=== PATIENT | female | born 1950 | race Caucasian/White ===

== ENCOUNTER 2021-08-15 00:58 | Inpatient (IN) | payer MEDICARE ==
[2021-08-15] VITALS (10 sets, daily range): BP systolic 100–121; BP diastolic 65–76
[~2021-08-15] VITALS: Ht 162.6 cm; Wt 101.2 kg
[2021-08-15] MEDS: ALBUTEROL/IPRATROPIUM 3 ML NEB NEB SCH ×4 (01:25→20:45)
[2021-08-15 01:27] LABS: BASOPHILS # (AUTO) 0.1 (0.0-0.1); BASOPHILS % 0.8 % (0.0-1.0); EOSINOPHILS # (AUTO) 0.2 (0.0-0.4); EOSINOPHILS % 2.6 % (0.0-6.0); HEMATOCRIT 34.2 % (34.2-44.1); HEMOGLOBIN 10.6 g/dL (12.0-16.0); LYMPHOCYTES # (AUTO) 1.8 (1.0-3.2); LYMPHOCYTES % 23.7 % (18.0-39.1); MEAN CORPUSCULAR VOLUME 93.4 fL (81-99); MONOCYTES # (AUTO) 0.9 (0.2-0.8); MONOCYTES % 11.8 % (4.4-11.3); NEUTROPHILS # (AUTO) 4.5 (2.1-6.9); NEUTROPHILS % 59.6 % (38.7-80.0); PLATELET COUNT 381 x10e3/uL (140-360); RED BLOOD COUNT 3.66 x10e6/uL (3.6-5.1); RED CELL DISTRIBUTION WIDTH 16.4 % (11.7-14.4)
[2021-08-15 01:46] LABS: ALBUMIN/GLOBULIN RATIO 0.9 (0.8-2.0); ANION GAP 13.8 mmol/L (8-16); CALCIUM 9.2 mg/dL (8.4-10.2); CREATININE, SERUM 0.74 mg/dL (0.57-1.11); POTASSIUM 3.8 mmol/L (3.5-5.1)
[2021-08-15 01:50] LABS: B-TYPE NATRIURETIC PEPTIDE2 13.7 pg/mL (0-100)
[2021-08-15 01:52] LABS: CREATINE KINASE MB 0.9 ng/mL (0-5.0)
[2021-08-15] MEDS ORDERED: IOPAMIDOL 370 MG/ML 200 ML INFUS..BTL INJ ONE (02:11)
[2021-08-15] MEDS ORDERED: SODIUM CHLORIDE 0.9% 50ML 50 ML ONE (02:11)
[2021-08-15] MEDS ORDERED: SODIUM CHLORIDE 0.9% 1000ML 1,000 ML IV SCH (03:45)
[2021-08-15] MEDS ORDERED: ACETAMIN-CODE12.5 ML (05:48)
[2021-08-15] MEDS ORDERED: PREDNISONE10 MG PO (05:48)
[2021-08-15] MEDS ORDERED: SYMBICORT 16010.2 GM INH ×2 (05:48→13:24)
[2021-08-15] MEDS ORDERED: LISINOPRIL10 MG PO (05:48)
[2021-08-15] MEDS ORDERED: ROPINIROLE HC0.25 MG PO ×2 (05:48→13:24)
[2021-08-15] MEDS ORDERED: ALLOPURINOL100 MG PO (05:48)
[2021-08-15] MEDS ORDERED: METFORMIN HCL500 MG PO ×2 (05:48→13:24)
[2021-08-15] MEDS ORDERED: ONDANSETRON4 MG/2 ML (05:48)
[2021-08-15] MEDS ORDERED: BENZONATATE100 MG PO (05:48)
[2021-08-15] MEDS ORDERED: CLOPIDOGREL75 MG PO (05:48)
[2021-08-15] MEDS ORDERED: AMBIEN5 MG PO (05:48)
[2021-08-15] MEDS ORDERED: TOPROL XL25 MG PO (05:48)
[2021-08-15] MEDS ORDERED: ASPIRIN325 MG PO (05:48)
[2021-08-15] MEDS ORDERED: ACETAMINOPHEN650 MG RC (05:48)
[2021-08-15] MEDS ORDERED: ENULOSE10 GM/15 M PO (05:48)
[2021-08-15] MEDS ORDERED: ALBUTEROL SULFAT2 MG PO (05:48)
[2021-08-15] MEDS ORDERED: ELIQUIS2.5 MG PO (05:48)
[2021-08-15] MEDS ORDERED: AMLODIPINE BESYL5 MG PO (05:48)
[2021-08-15] MEDS ORDERED: OXYBUTYNIN CHLOR5 M1 PO (05:48)
[2021-08-15] MEDS ORDERED: DOCUSATE SODIU100 MG PO (05:48)
[2021-08-15] MEDS ORDERED: CELEBREX200 MG PO (05:48)
[2021-08-15] MEDS ORDERED: LATANOPROST2.5 ML OP (05:48)
[2021-08-15] MEDS ORDERED: ONDANSETRON2 MG/1 ML IV (05:48)
[2021-08-15] MEDS ORDERED: CLONAZEPAM1 MG PO (05:48)
[2021-08-15] MEDS ORDERED: ECOTRIN325 MG PO (05:48)
[2021-08-15] MEDS ORDERED: LIPITOR20 MG PO (05:48)
[2021-08-15] MEDS ORDERED: ALBUTEROL/IPRATROPIUM 3 ML NEB ONE (07:14)
[2021-08-15 09:42] LABS: CREATINE KINASE MB 0.9 ng/mL (0-5.0)
[2021-08-15] MEDS ORDERED: CLONAZEPAM 1 MG TAB PO PRN (10:45)
[2021-08-15] MEDS ORDERED: FAMOTIDINE20 MG PO (13:24)
[2021-08-15] MEDS ORDERED: PROAIR DIGIHAL90 MCG (13:24)
[2021-08-15] MEDS: ALBUTEROL SULFATE 2 MG TAB PO SCH ×2 (14:48→21:13)
[2021-08-15] MEDS: BENZONATATE 100 MG CAP PO SCH ×2 (15:37→21:13)
[2021-08-15] MEDS: ROPINIROLE HCL 0.25 MG TAB PO SCH ×2 (15:37→21:13)
[2021-08-15 16:52] LABS: CREATINE KINASE MB 0.9 ng/mL (0-5.0)
[2021-08-15] MEDS: APIXAB 2.5 MG TABLET PO SCH (18:12)
[2021-08-15] MEDS: BUDESONIDE/FORMOTEROL 160/4.5MCG INHALER INH SCH (20:45)
[2021-08-15] MEDS ORDERED: LATANOPROST(OPTH) 2.5 ML BTL OP SCH (21:00)
[2021-08-15] MEDS ORDERED: ZOLPIDEM TARTRATE 5 MG TAB PO PRN (21:00)
[2021-08-15] MEDS ORDERED: ATORVASTATIN 40 MG TAB PO SCH (21:00)
[2021-08-15] MEDS: HYDROCODONE/APAP 5MG-325MG TAB PO PRN (22:37)
[2021-08-16] VITALS (7 sets, daily range): BP systolic 99–127; BP diastolic 55–77
[2021-08-16] MEDS: ALBUTEROL/IPRATROPIUM 3 ML NEB NEB SCH ×6 (03:00→15:31)
[2021-08-16] MEDS: HYDROCODONE/APAP 5MG-325MG TAB PO PRN (05:13)
[2021-08-16 05:56] LABS: BASOPHILS # (AUTO) 0.1 (0.0-0.1); BASOPHILS % 0.8 % (0.0-1.0); EOSINOPHILS # (AUTO) 0.1 (0.0-0.4); EOSINOPHILS % 1.8 % (0.0-6.0); HEMATOCRIT 30.9 % (34.2-44.1); HEMOGLOBIN 9.5 g/dL (12.0-16.0); LYMPHOCYTES # (AUTO) 1.5 (1.0-3.2); LYMPHOCYTES % 20.7 % (18.0-39.1); MEAN CORPUSCULAR HEMOGLOBIN 28.9 pg (28-32); MEAN CORPUSCULAR HGB CONC 30.7 g/dL (31-35); MEAN CORPUSCULAR VOLUME 93.9 fL (81-99); MONOCYTES # (AUTO) 0.9 (0.2-0.8); MONOCYTES % 12.2 % (4.4-11.3); NEUTROPHILS # (AUTO) 4.5 (2.1-6.9); PLATELET COUNT 334 x10e3/uL (140-360); RED BLOOD COUNT 3.29 x10e6/uL (3.6-5.1); RED CELL DISTRIBUTION WIDTH 16.4 % (11.7-14.4)
[2021-08-16 06:24] LABS: ALBUMIN 2.8 g/dL (3.5-5.0); ALBUMIN/GLOBULIN RATIO 0.9 (0.8-2.0); ANION GAP 10.5 mmol/L (8-16); CALCIUM 8.7 mg/dL (8.4-10.2); CREATININE, SERUM 0.66 mg/dL (0.57-1.11); POTASSIUM 3.5 mmol/L (3.5-5.1)
[2021-08-16] MEDS: BUDESONIDE/FORMOTEROL 160/4.5MCG INHALER INH SCH (08:10)
[2021-08-16] MEDS: APIXAB 2.5 MG TABLET PO SCH (08:12)
[2021-08-16] MEDS: ROPINIROLE HCL 0.25 MG TAB PO SCH ×2 (08:13→15:55)
[2021-08-16] MEDS: BENZONATATE 100 MG CAP PO SCH ×2 (08:13→15:55)
[2021-08-16] MEDS ORDERED: ASPIRIN 325 MG TAB PO SCH (09:00)
[2021-08-16] MEDS ORDERED: METOPROLOL SUCCINATE 25 MG TAB XL PO SCH (09:00)
[2021-08-16] MEDS ORDERED: AMLODIPINE BESYLATE 5 MG TAB PO SCH (09:00)
[2021-08-16] MEDS ORDERED: CLOPIDOGREL BISULFATE 75 MG TAB PO SCH (09:00)
[2021-08-16] MEDS: ALBUTEROL SULFATE 2 MG TAB PO SCH ×2 (09:00→15:00)
[2021-08-16] MEDS ORDERED: OXYBUTYNIN CHLORIDE XL 5 MG TAB PO SCH (09:00)
[2021-08-16] MEDS ORDERED: DOCUSATE SODIUM 100 MG CAP PO SCH (09:00)
[2021-08-16] MEDS ORDERED: LACTULOSE SYRUP 20 GM/30 ML UDC PO SCH (09:00)
[2021-08-16] MEDS ORDERED: LISINOPRIL 10 MG TAB PO SCH (09:00)
[2021-08-16] MEDS ORDERED: ALLOPURINOL 100 MG TAB PO SCH (09:00)
[2021-08-16] MEDS ORDERED: ZITHROMAX500 MG PO (13:02)
[2021-08-16] MEDS ORDERED: METFORMIN HCL 500 MG TAB PO SCH (17:00)
[2021-08-17] MEDS ORDERED: AZITHROMYCIN 250 MG TAB PO SCH (09:00)
== END 2021-08-16 16:32 | disposition home or self-care (01) | DRG 190 ==
LOC: ER 01:10 → ERHOLD 03:55 → MED/SURG 04:54
PROVIDERS: ADMIT Internal Medicine; ATTEND Internal Medicine
DX: J44.1 Chronic obstructive pulmonary disease with (acute) exacerbation (principal); J96.21 Acute and chronic respiratory failure with hypoxia; U09.9 Post COVID-19 condition, unspecified; D50.0 Iron deficiency anemia secondary to blood loss (chronic); Z74.09 Other reduced mobility; E78.5 Hyperlipidemia, unspecified; M10.9 Gout, unspecified; G25.81 Restless legs syndrome; E11.51 Type 2 diabetes mellitus with diabetic peripheral angiopathy without gangrene; Z79.899 Other long term (current) drug therapy; J84.10 Pulmonary fibrosis, unspecified; I25.10 Atherosclerotic heart disease of native coronary artery without angina pectoris; I11.9 Hypertensive heart disease without heart failure; Z87.891 Personal history of nicotine dependence; E66.9 Obesity, unspecified; Z68.38 Body mass index [BMI] 38.0-38.9, adult
CPT/HCPCS: 36415; 71260; 80053; 82550; 82553; 83605; 83880; 84484; 85025; 87040; 93005; 93306; 94640; 94660; 94664; 94799; 99284; J0456; J7030; J7050; Q9967; U0002